=== PATIENT | female | born 1995 ===

== ENCOUNTER → 2018-10-03 | Outpatient (CLI) | payer OTHER ==
--- NOTE | 2018-10-03 09:02 | WOMENS IMAGING REPORT ---
EXAM DESCRIPTION: TRANSVAGINAL ULTRASOUND COMPLETED DATE/TIME: 10/03/2018 7:48 am REASON FOR STUDY: FEMALE DYSPAREUNIA;N94.10 N94.10 UNSPECIFIED DYSPAREUNIA COMPARISON: None. TECHNIQUE: Dynamic and static grayscale images acquired of the pelvis via transvaginal approach and recorded on PACS. Additional selected color Doppler and spectral images recorded. LIMITATIONS: None. FINDINGS: UTERUS: Contour normal. No mass. ENDOMETRIAL STRIPE: No focal or generalized thickening. No masses. CERVIX: No nabothian cysts. RIGHT OVARY AND DOPPLER: Normal size. No worrisome masses. Normal arterial vascular flow without evid ence for torsion. LEFT OVARY AND DOPPLER: Normal size. No worrisome masses. Normal arterial vascular flow without evide nce for torsion. FREE FLUID: Moderate pelvic free fluid. OTHER: No other significant finding. MEASUREMENTS: UTERUS: 7.6 x 3.2 x 4.7 cm ENDOMETRIAL STRIPE: 10 mm RIGHT OVARY: 3.7 x 1.7 x 2.1 cm LEFT OVARY: 3.3 x 2.3 x 1.8 cm IMPRESSION: Free pelvic fluid is noted. Otherwise unremarkable transvaginal pelvic ultrasound with normal appearance of the uterus and ovaries. TECHNICAL DOCUMENTATION: JOB ID: [id number] [employer]- All Rights Reserved Rev-04/04 Reading location - IP/workstation name: [email or web address]
== END ==
LOC: WI 07:05
PROVIDERS: ATTEND Nurse Practitioner Family
DX: N94.10 Unspecified dyspareunia (principal)
CPT/HCPCS: 76830

== ENCOUNTER → 2020-01-26 | Outpatient (CLI) | payer OTHER | LOC: RAD 11:24 | PROVIDERS: ATTEND Nurse Practitioner Family | DX: M41.20 Other idiopathic scoliosis, site unspecified (principal) ==